=== PATIENT | male | born 1985 | race American Indian/Alaskan Native ===

== ENCOUNTER 2017-10-23 22:56 | Emergency (ER) | payer SELFPAY ==
--- NOTE | 2017-10-24 00:16 | EDM.PDOC ---
ED HPI GENERAL MEDICAL PROBLEM - General Chief Complaint: Neurological Problem Stated Complaint: [facility] Time Seen by Provider: 10/23/17 23:05 Source of Information: Reports: Patient, Significant Other (Girlfriend) History Limitations: Reports: No Limitations - History of Present Illness INITIAL COMMENTS - FREE TEXT/NARRATIVE: The patient was brought by EMS after suffering a (likely) unwitnessed seizure at [facility]. He was found on the floor with a lot of blood on the floor. He likely struck the back of his head on one of the shelves. The patient recalls shopping, then, the next thing he knew, he was being loaded into an ambulance. The patient denies biting his tongue, and denies urinary or fecal incontinence. There is a laceration to his posterior scalp, which is painful, otherwise, the patient has no other physical complaints. His having a headache or nausea. The patient reports that he has had 2 or 3 seizures since 19 years of age, however, he has never been evaluated by a Neurologist, never undergone an EEG, and has never been started on an antiepileptic medication. He states that he had a MRI of the brain a few years ago, but he does not know the results. His last seizure was about one year ago. The patient denies recent sleep deprivation. He denies use of recreational drugs. He drinks alcohol on occasion, but not to excess. The patient states that he used to live in [place], but currently resides in [place]. He is here, visiting. Headache Pain Score (Numeric/FACES): 8 - Related Data Allergies Allergy/AdvReac Type Severity Reaction Status Date / Time No Known Allergies Allergy Verified 10/23/17 23:00 Home Meds: Home Meds . [No Known Home Meds] 10/23/17 [History] Past Medical History Neurological History: Reports: Seizure Social & Family History - Tobacco Use Smoking Status *Q: Current Some Day Smoker - Alcohol Use Alcohol Use History: Yes Alcohol Use Frequency: Socially - Recreational Drug Use Recreational Drug Use: No - Living Situation & Occupation Living situation: Reports: Single, with Significant Other (Girlfriend), with Family (3 kids) Occupation: Unemployed ED ROS GENERAL - Review of Systems Review Of Systems: ROS reveals no pertinent complaints other than HPI. - Physical Exam Exam: See Below Exam Limited By: No Limitations General Appearance: Alert, WD/WN, No Apparent Distress Eye Exam: Bilateral Eye: Normal Inspection Ears: Normal External Exam, Hearing Grossly Normal Nose: Normal Inspection, No Blood Throat/Mouth: Normal Inspection, Normal Lips, Normal Voice, No Airway Compromise Head Exam: Normocephalic, Scalp Lacerations ("Y"-shaped laceration to the posterior midline scalp, with one arm measuring 5.0 cm, the other measuring 3.5 cm.), Scalp Swelling (mild), Scalp Tenderness Neck: Normal Inspection, Supple, Non-Tender, Full Range of Motion Respiratory/Chest: No Respiratory Distress, Lungs Clear, Normal Breath Sounds, No Accessory Muscle Use Cardiovascular: Normal Peripheral Pulses, Regular Rate, Rhythm, No Edema, No Gallop, No JVD, No Murmur, No Rub GI/Abdominal: Normal Bowel Sounds, Soft, Non-Tender, No Organomegaly, No Distention, No Abnormal Bruit, No Mass (Male) Exam: Deferred Rectal (Males) Exam: Deferred Neuro Exam (Abbreviated): Alert, Oriented, CN II-XII Intact, Normal Cognition, No Motor/Sensory Deficits Back Exam: Normal Inspection, Full Range of Motion, NT Extremities: Normal Inspection, Normal Range of Motion, No Pedal Edema, Normal Capillary Refill Psychiatric: Normal Affect Skin Exam: Warm, Dry, Intact, Normal Color, No Rash ED PROCEDURES - Laceration/Wound Repair Posterior Head Lac/wound length in cm: 8.5 Appearance: Subcutaneous, Stellate, Clean Skin Prep: Saline Exploration/Debridement/Repair: Wound Explored, In a Bloodless Field, Explored to Base, No Foreign Material Found, Wound Margins Revised Closed with: Kiley # of Sutures: 9 Tetanus Status Addressed: Yes Complications: No Course - Vital Signs Last Recorded V/S: Last Vital Signs Temp 36.8 C 10/23/17 22:57 Pulse 105 H 10/23/17 22:57 Resp 16 10/23/17 22:57 BP 144/94 H 10/23/17 22:57 Pulse Ox 95 10/23/17 22:57 - Orders/Labs/Meds Orders: Active Orders 24 hr Category Date Time Status Head wo Cont [CT] Stat Exams 10/23/17 23:15 Taken Labs: Laboratory Tests 10/23/17 10/23/17 Range/Units 23:18 23:18 WBC 8.16 (4.23-9.07) K/mm3 RBC 4.82 (4.63-6.08) M/mm3 Hgb 14.1 (13.7-17.5) gm/L Hct 41.2 (40.1-51.0) % MCV 85.5 (79.0-92.2) fl MCH 29.3 (25.7-32.2) pg MCHC 34.2 (32.2-35.5) g/dl RDW Std Deviation 41.0 (35.1-43.9) fL Plt Count 223 (163-337) K/mm3 MPV 10.5 (9.4-12.3) fl Neutrophils % (Manual) 31 L (40-60) % Band Neutrophils % 0 (0-10) % Lymphocytes % (Manual) 62 H (20-40) % Atypical Lymphs % 0 % Monocytes % (Manual) 6 (2-10) % Eosinophils % (Manual) 1 (0.8-7.0) % Basophils % (Manual) 0 L (0.2-1.2) Platelet Estimate Adequate Plt Morphology Comment Normal RBC Morph Comment Normal Sodium 140 (136-145) mEq/L Potassium 3.5 (3.5-5.1) mEq/L Chloride 104 (98-107) mEq/L Carbon Dioxide 20 L (21-32) mEq/L Anion Gap 19.5 H (5-15) BUN 20 H (7-18) mg/dL Creatinine 1.1 (0.7-1.3) mg/dL Est Cr Clr Drug Dosing 109.96 mL/min Estimated GFR (MDRD) > 60 (>60) mL/min BUN/Creatinine Ratio 18.2 H (14-18) Glucose 120 H (74-106) mg/dL Calcium 8.8 (8.5-10.1) mg/dL Phosphorus 2.7 (2.6-4.7) mg/dL Magnesium 2.2 (1.8-2.4) mg/dl Total Bilirubin 0.3 (0.2-1.0) mg/dL AST 40 H (15-37) U/L ALT 71 H (16-63) U/L Alkaline Phosphatase 100 (46-116) U/L Total Protein 7.9 (6.4-8.2) g/dl Albumin 4.2 (3.4-5.0) g/dl Globulin 3.7 gm/dL Albumin/Globulin Ratio 1.1 (1-2) - Re-Assessments/Exams Free Text/Narrative Re-Assessment/Exam: 10/24/17 00:15 CT of the head without contrast is read by [facility] as "No intracranial sequelae of trauma appreciated." 10/24/17 01:07 9 kiley were placed across the stellate posterior scalp wound. Test results discussed with the patient and his girlfriend. Odette's workup was unremarkable. I am recommending that when he returns home to [place], that he seek a Neurologist for further evaluation that will likely include an EEG. The Neurologist can then determine if the patient would benefit from starting an antiepileptic medication. I am recommending that the patient not drive until cleared to do so by a Neurologist. Departure - Departure Time of Disposition: 01:10 Disposition: Home, Self-Care 01 Condition: Fair Clinical Impression: Seizure, Scalp laceration - Discharge Information Referrals: PCP,Not In Area [Primary Care Provider] - Forms: ED Department Discharge Additional Instructions: You were seen in the emergency room after likely suffering a seizure at [facility] , sustaining a laceration to the back of your head. Workup in the ER included a CT scan of your head, and blood work. Your entire workup was unremarkable. Your blood work was unremarkable, and the CT scan of your head did not find any abnormalities. The laceration to the back of your head was stapled with 9 kiley. Keep the wound clean with ordinary shampoo and water. Do not put any product, such as hairspray or gel, in your hair. Do not soak the wound, such as with swimming. Take [id number] Tylenol or ibuprofen as needed for discomfort. The kiley should be ready for removal by 10/31/2017. They can be removed at a walk-in clinic, urgent care center, by a nurse at your doctor's office, or in an ER. Do not attempt to remove them yourself, as they require a special tool. We strongly recommend that you see a Neurologist once you return home to [place], for evaluation of your seizures. It is very important that you NOT DRIVE until cleared to do so by a Neurologist. If any other problems, please do not hesitate to return to the ER. - My Orders Last 24 Hours: My Active Orders 10/23/17 23:15 Head wo Cont [CT] Stat - Assessment/Plan Last 24 Hours: My Active Orders 10/23/17 23:15 Head wo Cont [CT] Stat
--- NOTE | 2017-10-27 14:31 | CT ---
Head CT Technique: Multiple axial sections through the brain were obtained. Intravenous contrast was not utilized. Comparison: No prior intracranial imaging. Findings: Soft tissue swelling is seen within the posterior right scalp. Small amount of soft tissue air is seen compatible with scalp injury. Ventricles along with basal cisterns and sulci over the convexities are within normal limits. No abnormal parenchymal densities are seen. No evidence of intracranial hemorrhage. No midline shift or mass effect is seen. Bone window settings were reviewed which show no acute calvarial abnormality. Visualized sinuses are clear. Impression: 1. Soft tissue swelling as well as scalp injury within the posterior right scalp. 2. No acute intracranial abnormality is identified. Diagnostic code #3 I agree with preliminary report from ad, finalized at 10/24/17, 1:12 AM Central Time
== END 2017-10-24 01:20 | disposition home or self-care (01) ==
LOC: JD.ED 22:56
DX: S01.01XA Laceration without foreign body of scalp, initial encounter (principal); R56.9 Unspecified convulsions; F17.200 Nicotine dependence, unspecified, uncomplicated; W22.8XXA Striking against or struck by other objects, initial encounter
CPT/HCPCS: 12004; 36415; 70450; 70450-26; 80053; 83735; 84100; 85007; 85027; 99284-25; 99285-25